=== PATIENT | male | born 1995 | race Caucasian/White ===

== ENCOUNTER → 2021-06-30 | Outpatient (CLI) | payer OTHER ==
--- NOTE | 2021-06-30 14:29 | US ---
EXAMINATION TYPE: US abdomen complete DATE OF EXAM: 06/30/2021 COMPARISON: NONE CLINICAL HISTORY: 25-year-old male R10.11 Right upper quadrant pain. RUQ and epigastric pain TECHNIQUE: Multiple sonographic images of the abdomen are obtained. FINDINGS: EXAM MEASUREMENTS: Liver Length: 15.3 cm Gallbladder Wall: 0.2 cm CBD: 0.2 cm Spleen: 10.5 cm Right Kidney: 10.4 x 4.3 x 5.0 cm Left Kidney: 10.4 x 6.3 x 4.7 cm Physics Tutor notes:*technical limitations due to large amount of overlying bowel content Pancreas: Obscured by bowel gas Liver: wnl Gallbladder: no evidence of stones Evidence for sonographic Kam's sign: no CBD: wnl Spleen: appears wnl Right Kidney: no evidence of hydronephrosis Left Kidney: no evidence of hydronephrosis Upper IVC: wnl Abd Aorta: wnl IMPRESSION: Suboptimal visualization of the pancreas. Otherwise, unremarkable sonographic examination of the abdo men.
== END | disposition home or self-care (01) ==
LOC: RADUSWWP 11:36
PROVIDERS: ATTEND Family Medicine
DX: R10.11 Right upper quadrant pain (principal); R10.13 Epigastric pain
CPT/HCPCS: 76700